=== PATIENT | male | born 1960 | race Caucasian/White ===

== ENCOUNTER 2024-12-29 06:14 | Day surgery (SDC) | payer OTHER, SELFPAY ==
[2024-12-15 13:08] VITALS: BMI 33.2
[2024-12-15 13:29] LABS: % Basophils 0.6 % (0-2); % Eosinophils 0.8 % (0-6); % Immature Granulocytes 0.3 % (0-0.5); % Lymphocytes 40.8 % (20.5-51.1); % Monocytes 7.4 % (1.7-9.3); % Neutrophils 50.1 % (42.2-75.2); Absolute Eosinophils 0.1 10^3/uL (0-0.7); Absolute Monocytes 0.5 10^3/uL (0.1-0.6); Absolute Neutrophils 3.6 10^3/uL (1.4-6.5); Hematocrit 45.2 % (39.0-52.0); Hemoglobin 16.9 g/dL (13.0-18.0); Mean Corp Hgb Conc. 37.4 g/dL (33.0-37.0); Mean Corpuscular Hgb 34.9 pg (27.0-31.0); Mean Corpuscular Volume 93.4 fL (80.0-94.0); Mean Platelet Volume 10.3 fL (7.4-10.4); Nucleated Red Blood Cells % 0 % (-); Platelet Count 186 10^3/uL (130-400); Red Blood Cell Count 4.84 10^6/uL (4.70-6.10); Red Cell Dist. Width 13.6 % (11.5-14.5); White Blood Cell Count 7.3 10^3/uL (4.8-10.8)
[2024-12-15 13:48] LABS: PT 13.5 Sec (11.4-14.6)
[2024-12-15 13:58] LABS: ALT (SGPT) 71 U/L (0-50); AST (SGOT) 49 U/L (17-59); Albumin 4.2 g/dl (3.5-5.0); Alkaline Phosphatase 79 U/L (38-126); Blood Urea Nitrogen 26 mg/dl (9-20); Calcium 8.9 mg/dl (8.4-10.2); Carbon Dioxide 21 mmol/L (22-30); Chloride 106 mmol/L (98-107); Estimated Creatinine Clearance 79 ml/min; Glucose 125 mg/dl (70-99); Magnesium 1.8 mg/dl (1.6-2.3); Potassium 4.8 mmol/L (3.5-5.1); Sodium 139 mmol/L (135-145); Total Bilirubin 0.7 mg/dl (0.2-1.3); Total Protein 7.3 g/dl (6.3-8.2); eGFR > 60.00
[2024-12-29] VITALS (23 sets, daily range): BP systolic 113–131; BP diastolic 75–100
[2024-12-29 07:01] LABS: Glucose - Point of Care 130 mg/dl (70-99)
--- NOTE | 2024-12-29 08:11 | ITS.CL.ABL ---
[employer] - Ablation
Ablation
Procedure Report:
Primary Shell Press Operator: Jovany Macias MD
Procedure Date: 12/29/2024
Patient History:
Patient is a pleasant 64-year-old male with a history of CAD status post CABG, ischemic cardiomyopathy with improved EF, history of abdominal aortic aneurysm s/p repair 2017, PVC, dyslipidemia, hypertension, history of tobacco use disorder, diabetes
mellitus type 2, and symptomatic paroxysmal likely persistent atrial fibrillation.
See H&P for complete details.
Indication:
Symptomatic paroxysmal likely persistent atrial fibrillation
Mixed cardiomyopathy (ischemic/nonischemic)
Arrhythmia Specific History:
Prior Medical Therapies for Rate and Rhythm Control:
X Beta-hui
X Calcium channel-hui
[ ] Amiodarone
[ ] Dronederone
[ ] Sotalol
[ ] Flecainide
[ ] Dofetilide
[ ] Options limited by bradycardia
[ ] Options limited by comorbid renal disease
Prior Procedural Therapies for AF/AFL:
[ ] Cardioversion
[ ] Pulmonary Vein Isolation
[ ] Posterior Wall Isolation
[ ] Additional lines (Specify)
[ ] Surgical Foley-MAZE or PVI (Specify)
Procedure Performed:
X AF ablation procedure (51733) -- includes LA/CS pacing, trans-septal, 3D mapping, + ICE
[ ] +IV drug (33597)
[ ] +Other Arrhythmia (54108)
X +Other AF Line/ablation (01127) - posterior wall (floor roof wall)
Risks and expected recovery has been explained in detail. Alternative options have been explored, and in a shared-decision making fashion we have decided that this was the most appropriate procedure.
Method
NPO status confirmed. Grounding pad applied. Defibrillator pads applied. Continuous surface ECG, pulse oximetry, and blood pressure were monitored. Procedure was performed under general anesthesia, with anesthesia services.
Both groins were clipped, prepped with Chloraprep, and draped in sterile fashion. Time out was called. Local anesthesia administered with bupivacaine. The right femoral vein was accessed for catheter placement, using ultrasound guidance (images
saved to record), micro-puncture needle/wire, and modified seldinger technique. 3 sheaths were placed. The following catheters were used:
[ ] Tacticath SE (D/F Curve) ablation catheter
X Viewflex 9Fr ICE catheter
X Inquiry decapolar 6Fr diagnostic catheter
[ ] CRD Hex 6Fr
[ ] Arctic Front Advance Cryoballoon ([ ]28mm[ ]23mm)
[ ] Achieve Advance mapping catheter ([ ]15mm[ ]20mm)
X FlexCath Contour 10 Fr with PulseSelect PFA Catheter
X Advisor HD Grid Mapping Catheter, SE
[ ] Acuson AcuNav 8 Fr ICE catheter
[ ]Other: [ ]
Intracardiac ultrasound (ICE) was carefully advanced into the right atrium to guide sheath placement over a J-wire, catheter placement, guide trans-septal puncture, identify potential complications, identify anatomic structures and ensure proper
contact between ablation catheter and tissue.
Heparin was given prior to trans-septal puncture. Heparin was given to achieve and maintain a target ACT of 300-400 seconds throughout the procedure.
Trans-septal access was performed under ICE guidance. The trans-septal puncture was performed with a SafeSept wire through a Brockenbrough needle assembly through the steerable sheath. The wire was visualized as it entered the LSPV and system
advanced under ICE guidance and fluoroscopy into the LA. The Brockenbrough needle assembly, SafeSept wire and sheath dilator were removed under negative pressure. LA pressure was measured and recorded.
ICE and 3D mapping was performed to identify relevant cardiac structures. A careful 3D map was created to assess for regions of low-voltage and abnormal electrogram signals using HD grid mapping catheter and PulseSelect catheter. Additional mapping
was performed as outlined below.
Prior to ablation, glycopyrrolate was provided. PulseSelect catheter was advanced over J-wire to the ostium of each vein. Pulmonary vein isolation was performed with ostial and antral lesions in a circumferential manner. Contact was visualized via
EAM, ICE, fluoroscopy, and EGM signals. Posterior wall isolation was performed by anchoring the J-wire within the pulmonary vein and placing the PulseSelect catheter in contact with the posterior wall as visualized by aforementioned methods.
Following completion of ablation lesions, a post-ablation voltage/activation map was performed in sinus rhythm. Entrance and exit block were confirmed for each vein and the posterior wall.
Catheter and sheath were removed from the left atrium and post-ablation intracardiac echo evaluation was consistent with pre-ablation with no changes and no pericardial effusion and there is no left atrial thrombus or left ventricle thrombus seen.
Electrophysiology study was performed, no arrhythmias induced. Hemostasis was obtained with figure of 8 stitch for each groin and with manual pressure. Protamine was used for reversal.
Estimated Blood Loss
5 mL
Complications
None
Fluoroscopy: 2.2 minutes; 6.12 mGy; DAP 1.21
LA Pressure: Pre 13 mmHg, post 15 mmHg
Baseline Intervals:
Rhythm: SR
MD: 207 ms
QRS: 101 ms
QT: 361 ms
QTc: 397 ms
A-A: 828 ms
R-R: 828 ms
Post-Procedure Intervals:
MD: 196 ms
QRS: 101 ms
QT: 388 ms
QTc: 404 ms
A-A: 922 ms
R-R: 922 ms
AVWB: 400 ms
Recommendations
- Bedrest with straight-leg precautions as ordered
- Anticipate same day discharge if patient meeting clinical metrics
- Resume home medications as indicated
- Ok to resume anticoagulation tonight if patient and groin sites stable
- PPI daily for 30 days
- Plan for follow-up in office as scheduled
- OK to DC diltiazem
Mejia Ruggiero DO, FACC, [facility]
Clinical Cardiac Fireworks Inspector
cc: Dr Jovany Macias, Dr Ping Israel
[2024-12-29 09:23] LABS: Glucose - Point of Care 107 mg/dl (70-99)
--- NOTE | 2024-12-29 14:51 | W.PN.UPDATE ---
Update Note
Progress Note Update
PT seen post PFA. Right groin site without ht/bleeding. OOB ambulating, urinating without difficulty. Post EKG NSR 80s, no acute changes. Resume elqiuis tonight at usual time. 30 day rx for protonix sent to pharmacy. Followup at [facility] as scheduled.
Home later today if groin site/tele remain stable.
[2025-01-02 07:07] LABS: ACT-LR - POC 337 Seconds (116-155)
[2025-01-02 07:07] LABS: ACT-LR - POC 302 Seconds (116-155)
[2025-01-02 07:07] LABS: ACT-LR - POC 382 Seconds (116-155)
[2025-01-02 07:07] LABS: ACT-LR - POC 266 Seconds (116-155)
[2025-01-02 07:07] LABS: ACT-LR - POC 200 Seconds (116-155)
== END 2024-12-29 16:10 | disposition home or self-care (01) ==
LOC: CATH 06:14
PROVIDERS: ATTENDING PHYSICIAN Internal Medicine Cardiovascular Disease; FAMILY PHYSICIAN Family Medicine; OTHER PHYSICIAN Internal Medicine Cardiovascular Disease
DX: I48.0 Paroxysmal atrial fibrillation (principal); I10 Essential (primary) hypertension; I65.23 Occlusion and stenosis of bilateral carotid arteries; E11.9 Type 2 diabetes mellitus without complications; E66.9 Obesity, unspecified; E78.5 Hyperlipidemia, unspecified; Z87.891 Personal history of nicotine dependence; I25.10 Atherosclerotic heart disease of native coronary artery without angina pectoris; I25.5 Ischemic cardiomyopathy; K76.0 Fatty (change of) liver, not elsewhere classified; Z79.01 Long term (current) use of anticoagulants; Z68.33 Body mass index [BMI] 33.0-33.9, adult; Z79.84 Long term (current) use of oral hypoglycemic drugs; Z79.85 Long-term (current) use of injectable non-insulin antidiabetic drugs; Z79.899 Other long term (current) drug therapy; Z86.79 Personal history of other diseases of the circulatory system; Z95.1 Presence of aortocoronary bypass graft; Z98.890 Other specified postprocedural states
CPT/HCPCS: C1732; C1894; C1730; C1769; C1766; C1733; 36415; 75572; 80053; 82962; 83735; 85025; 85347; 85610; 86850; 86900; 86901; 93005; 93656; 93657; Q9967